=== PATIENT | male | born 1960 | race Asian ===

== ENCOUNTER 2019-09-25 23:42 | Emergency (ER) | payer MEDICAID ==
[2019-09-26] MEDS ORDERED: HYDROCODONE/ACETAMINOPHEN 5-325 MG TABLET PO ONE (00:13)
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
[2019-09-26] MEDS ORDERED: KETOROLAC TROMETHAMINE 60 MG/2 ML SDV IM ONE (01:04)
[2019-09-26 01:57] VITALS: BP 126/80
== END 2019-09-26 01:57 | disposition home or self-care (01) ==
LOC: ER 23:42
DX: S43.102A Unspecified dislocation of left acromioclavicular joint, initial encounter (principal); V18.4XXA Pedal cycle driver injured in noncollision transport accident in traffic accident, initial encounter; Y93.55 Activity, bike riding
CPT/HCPCS: 73030; J1885